=== PATIENT | male | born 1995 | race Caucasian/White ===

== ENCOUNTER 2016-12-30 14:26 | Emergency (ER) | payer OTHER ==
--- NOTE | 2016-12-30 15:56 | DIAGNOSTIC IMAGING REPORT ---
PROCEDURE: XR ABD SERIES 2V ABD/1V CHEST INDICATION: ABDOMINAL PAIN TECHNIQUE: AP supine and upright views of the abdomen with single view of the chest. COMPARISON: None. FINDINGS: CHEST: Lungs are clear. Normal cardiovascular structures. Bony thorax is unremarkable. ABDOMEN: Bowel gas pattern is normal. No soft-tissue masses or unusual calcifications. No evidence of free air. Osseous structures are unremarkable. IMPRESSION: 1. Negative acute abdominal series.
--- NOTE | 2016-12-30 16:31 | ED ORDER SUMMARY ---
..... Patient: ELI NICHOLSON OrderSheet [facility] VisitID: [id number] [place] [address] 21y, M Registration Date/Time: 12/30/2016 ORDER SHEET Weight: 122.4 kg (stated) Allergies: Reglan GENERAL ORDERS: Abd Series 2V Abd/1V Chest Urgent (15:07 12/30/2016 EKoroleva P.A.-C) (Ack 15:08 LNations ER Tech1) (15:44 Celio) CBC w Diff Urgent (15:49 12/30/2016 EKoroleva P.A.-C) (Ack 15:50 LNations ER Tech1) (15:56 LWhalen R.N.) BMP Urgent (15:49 12/30/2016 EKoroleva P.A.-C) (Ack 15:50 LNations ER Tech1) (15:56 LWhalen R.N.) MEDICATION ORDERS: GI Cocktail WHITE PO 30 mL with Lidocaine Viscous Mouth/Throat 15 mL, Maalox Plus Oral 15 mL (NOW) (16:09 12/30/2016 EKoroleva P.A.-C) (16:22 LWhalen R.N.) Hydrocodone-APAP PO 5/325 mg (NOW, HIGH ALERT MEDICATION) (16:16 12/30/2016 EKoroleva P.A.-C) (16:22 LWhalen R.N.) IV FLUIDS: IV NS : initial bolus 1000 mL (1000 mL/hr), then 1000 mL/hr for X1 (NOW); Matt (15:48 12/30/2016 EKoroleva P.A.-C) (15:56 LWhalen R.N.) Toradol IV 30 mg (NOW) (15:48 12/30/2016 EKoroleva P.A.-C) (15:57 LWhalen R.N.) Protonix IVP 40mg 40 mg (Mix in NS 10ml over 2min) (15:49 12/30/2016 EKoroleva P.A.-C) (15:57 LWhalen R.N.) ORDER SHEET NOTES: [Electronically signed by Jez Lopez R.N. (16:33 12/30/2016)] [Electronically signed by Patricia Solis P.A.-C (16:46 12/30/2016)] [Electronically locked/signed by Jez Lopez R.N. (16:33 12/30/2016)]
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
--- NOTE | 2016-12-30 16:31 | ED ORDER SUMMARY ---
..... Patient: ELI NICHOLSON OrderSheet [facility] VisitID: [id number] [place] [address] 21y, M Registration Date/Time: 12/30/2016 ORDER SHEET Weight: 122.4 kg (stated) Allergies: Reglan GENERAL ORDERS: Abd Series 2V Abd/1V Chest Urgent (15:07 12/30/2016 EKoroleva P.A.-C) (Ack 15:08 LNations ER Tech1) (15:44 Celio) CBC w Diff Urgent (15:49 12/30/2016 EKoroleva P.A.-C) (Ack 15:50 LNations ER Tech1) (15:56 LWhalen R.N.) BMP Urgent (15:49 12/30/2016 EKoroleva P.A.-C) (Ack 15:50 LNations ER Tech1) (15:56 LWhalen R.N.) MEDICATION ORDERS: GI Cocktail WHITE PO 30 mL with Lidocaine Viscous Mouth/Throat 15 mL, Maalox Plus Oral 15 mL (NOW) (16:09 12/30/2016 EKoroleva P.A.-C) (16:22 LWhalen R.N.) Hydrocodone-APAP PO 5/325 mg (NOW, HIGH ALERT MEDICATION) (16:16 12/30/2016 EKoroleva P.A.-C) (16:22 LWhalen R.N.) IV FLUIDS: IV NS : initial bolus 1000 mL (1000 mL/hr), then 1000 mL/hr for X1 (NOW); Matt (15:48 12/30/2016 EKoroleva P.A.-C) (15:56 LWhalen R.N.) Toradol IV 30 mg (NOW) (15:48 12/30/2016 EKoroleva P.A.-C) (15:57 LWhalen R.N.) Protonix IVP 40mg 40 mg (Mix in NS 10ml over 2min) (15:49 12/30/2016 EKoroleva P.A.-C) (15:57 LWhalen R.N.) ORDER SHEET NOTES: [Electronically signed by Jez Lopez R.N. (16:33 12/30/2016)] [Electronically signed by Patricia Solis P.A.-C (16:46 12/30/2016)] [Electronically locked/signed by Jez Lopez R.N. (16:33 12/30/2016)]
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
--- NOTE | 2016-12-30 16:47 | ED MED RECONCILIATION SUMMARY ---
Patient: ELI NICHOLSON Medication Reconciliation Report [facility] VisitID: [id number] [address] [place] [address] 21y, M Registration Date/Time: 12/30/2016 Weight: 122.4 kg Height/Length: 72 in. BMI: 36.6 ALLERGIES: Reglan The patient's Home Medications are listed below: THE FOLLOWING MEDICATIONS NEED TO BE RECONCILED: Concerta Oral Omeprazole Oral Phenergan (Promethazine) Oral The source(s) of the original Home Medication information: Not obtained. The following Medications were given to the patient in the Emergency Department: IV NS IV Fluids bolus 0, then 1000 mL/hr, administered: 12/30/2016 3:56:00 PM PROTONIX [IVP] IVP 40 mg, administered: 12/30/2016 3:52:00 PM Toradol [IVP] IVP 30 mg, administered: 12/30/2016 3:57:00 PM Hydrocodone-APAP [PO] PO 1 tab, administered: 12/30/2016 4:22:00 PM GI COCKTAIL WHITE [PO] PO 30 mL, administered: 12/30/2016 4:22:00 PM The following Medications were prescribed to the patient: Ultram 50 mg: take 1 orally every 6 hours as needed for pain. Dispense ten (10). No refills. Substitution is permissible. -- Patricia Solis P.A.-C
--- NOTE | 2016-12-30 16:47 | ED MED RECONCILIATION SUMMARY ---
Patient: ELI NICHOLSON Medication Reconciliation Report [facility] VisitID: [id number] [address] [place] [address] 21y, M Registration Date/Time: 12/30/2016 Weight: 122.4 kg Height/Length: 72 in. BMI: 36.6 ALLERGIES: Reglan The patient's Home Medications are listed below: THE FOLLOWING MEDICATIONS NEED TO BE RECONCILED: Concerta Oral Omeprazole Oral Phenergan (Promethazine) Oral The source(s) of the original Home Medication information: Not obtained. The following Medications were given to the patient in the Emergency Department: IV NS IV Fluids bolus 0, then 1000 mL/hr, administered: 12/30/2016 3:56:00 PM PROTONIX [IVP] IVP 40 mg, administered: 12/30/2016 3:52:00 PM Toradol [IVP] IVP 30 mg, administered: 12/30/2016 3:57:00 PM Hydrocodone-APAP [PO] PO 1 tab, administered: 12/30/2016 4:22:00 PM GI COCKTAIL WHITE [PO] PO 30 mL, administered: 12/30/2016 4:22:00 PM The following Medications were prescribed to the patient: Ultram 50 mg: take 1 orally every 6 hours as needed for pain. Dispense ten (10). No refills. Substitution is permissible. -- Patricia Solis P.A.-C
--- NOTE | 2016-12-30 16:47 | ED MAR SUMMARY ---
..... Medication Administration Record [facility] [address] [place] [address] Patient: ELI NICHOLSON Visit ID: [id number] 21y, M Weight: 122.4 kg Height/Length: 72 in BMI: 36.6 ALLERGIES: Reglan Given 15:52 12/30/2016 Jez Lopez R.N. Medication Administered: PROTONIX [IVP] (PANTOPRAZOLE SODIUM), Dose: 40 mg IVP over 4 minute(s), Site: #1 right hand. Medication Ordered: Protonix IVP 40mg 40 mg (Mix in NS 10ml over 2min). Start 15:56 12/30/2016 Jez Lopez R.N., Stop 16:31 12/30/2016 Jez Lopez R.N. Medication Administered: IV NS (SALINE), Dose: IV Fluids over 1 hour(s), Rate: 1000 mL/hr, Dispensed: 1000 mL bag, Site: #1 right hand. Medication Ordered: IV NS : initial bolus 1000 mL (1000 mL/hr), then 1000 mL/hr for X1 (NOW); Matt. Given 15:57 12/30/2016 Jez Lopez R.N. Medication Administered: TORADOL [IVP], Dose: 30 mg IVP over 2 minute(s), Site: #1 right hand. Medication Ordered: Toradol IV 30 mg (NOW). Given 16:22 12/30/2016 Jez Lopez R.N. Medication Administered: GI COCKTAIL WHITE [PO] (SIMETHICONE), Dose: 30 mL Oral Suspension PO. Medication Ordered: GI Cocktail WHITE PO 30 mL with Lidocaine Viscous Mouth/Throat 15 mL, Maalox Plus Oral 15 mL (NOW). Given 16:22 12/30/2016 Jez Lopez R.N. Medication Administered: HYDROCODONE-APAP [PO] (HYDROCODONE-ACETAMINOPHEN), Dose: 1 tab 5/325 mg Tablets PO. Medication Ordered: Hydrocodone-APAP PO 5/325 mg (NOW, HIGH ALERT MEDICATION).
--- NOTE | 2016-12-30 16:47 | ED DISCHARGE INSTRUCTIONS ---
Patient: ELI NICHOLSON General Instructions [facility] VisitID: [id number] [place] [address] 21y, M Registration Date/Time: 12/30/2016 Chronic abdominal pain of unknown cause. INSTRUCTIONS Drink plenty of fluids. Prescription Medications: Ultram 50 mg: take 1 orally every 6 hours as needed for pain. Dispense ten (10). No refills. Substitution is permissible. Follow-up: Follow up with a specialist. ADDITIONAL INFORMATION Epigastric Pain (Uncertain Cause) Epigastric pain can be a sign of disease in the upper abdomen. Common causes include: Acid reflux (stomach acid flowing up into the esophagus) Gastritis (irritation of the stomach lining) Peptic Ulcer Disease Inflammation of the pancreas Gallstone Infection in the gallbladder Pain may be dull or burning. It may spread upward to the chest or to the back. There may be other symptoms such as belching, bloating, cramps or hunger pains. There may be weight loss or poor appetite, nausea or vomiting. Since the diagnosis of your pain is not certain yet, further tests will be needed. Sometimes the doctor will treat you for the most likely condition to see if there is improvement before doing further tests. Home Care: Unless told otherwise, you may try antacids (Mylanta or Maalox) help neutralize stomach acid. This may relieve your pain. Take 1-2 tablespoons or tablets one hour after meals and at bedtime. The liquid form coats the stomach better than the chewable tablets and is preferred. If Tagamet (cimetidine), Zantac (ranitidine), or Carafate (sucralfate) has also been prescribed, allow one hour between taking this medicine and taking the antacids. Avoid foods that irritate the stomach. Follow a light diet until you are feeling better. Avoid alcohol, caffeine, and tobacco. Talk to your doctor before taking any [id number] medicine that contains aspirin or an anti-inflammatory drug such as ibuprofen, Advil, Motrin, Naprosyn, or Aleve. Follow Up with your doctor or as advised if you do not improve over the next 48 hours. Get Prompt Medical Attention if any of the following occur: Stomach pain worsens or moves to the right lower part of the abdomen Chest pain appears, or if it worsens or spreads to the chest, back, neck, shoulder, or arm Frequent vomiting (cant keep down liquids) Blood in the stool or vomit (red or black color) Feeling weak or dizzy, fainting, or having trouble breathing Fever of 100.4F (38C) or higher, or as directed by your healthcare provider Abdominal swelling Symptoms With Uncertain Cause [Adult] Based on the exam and any tests that were performed today, the exact cause of your symptoms is not certain. While your condition does not seem serious, the signs of a serious problem may take more time to appear. Therefore, it is important for you to watch for any new symptoms or worsening of your condition.Follow up with your doctor or this facility, as directed.A repeat physical exam or additional testing at a later time may uncover a cause for your symptoms that is not evident today. Home Care: Resume your usual activities and diet when this feels comfortable to do so. Follow Up with your doctor, or as advised by our staff.Contact your doctor sooner if your symptoms do not begin to improve in the next few days. [NOTE: If you had an x-ray, CT scan, ultrasound, or ECG (electrocardiogram), it will be reviewed by a specialist. You will be notified of any new findings that may affect your care.] Get Prompt Medical Attention if any of the following occur: Current symptoms get worse New symptoms appear [place] Diet A bland diet is used for patients with an upset stomach. It consists of foods that are mild and easy to digest. It is better to eat small frequent meals rather than three large meals a day. BEVERAGES OK: Fruit juices, non-caffeinated teas and coffee, non-carbonated heller AVOID: Carbonated beverage, caffeinated tea and coffee, all alcoholic beverages BREAD OK: Refined white, wheat or rye bread, annika or soda crackers, Macie toast, plain rolls, bagels AVOID: Whole-grain bread CEREAL OK: Refined cereals: cooked or ready to eat AVOID: Whole grain cereals and granola, or those containing bran, seeds or nuts DESSERTS OK: Peanut butter and all others except those to "avoid" AVOID: Chocolate, cocoa, coconut, popcorn, nuts, seeds, jam, marmalade FRUITS OK: Canned, cooked, frozen or fresh fruits without seeds or tough skin AVOID: Olives, skin and seeds of fruit MEATS OK: All fresh or preserved meat, fish and fowl AVOID: Any that are prepared with those spices to "avoid" CHEESE & EGGS OK: Eggs, cottage cheese, cream cheese, other cheeses AVOID: All cheeses made with those spices to "avoid" POTATOES & PASTA OK: Potato, rice, macaroni, noodles, spaghetti AVOID: None SOUPS OK: All soups without heavy seasoning AVOID: Soups made with those spices to "avoid" VEGETABLES OK: Canned, cooked, fresh or frozen mildly flavored vegetables without seeds, skins or coarse fiber AVOID: Vegetables prepared with those spices to "avoid"; skin and seeds of vegetables and those with coarse fiber SPICES OK: Salt, lemon and [place] juice, vinegar, all extracts, walter, cinnamon, thyme, mace, allspice, paprika AVOID: [place] powder, cloves, pepper, seed spices, garlic, gravy pickles, highly seasoned salad dressings Clear Liquid Diet Clear liquids are any liquid that you can see through as well as those that are very easy to digest. This is used while the body is recovering from irritation or infection of the stomach or intestinal tract. It may also be used before special procedures or surgery. This diet is to be used no more than three days. You may include the following items. Adults Adults should drink a total of 23 quarts of liquid per day. It may be easier to drink small frequent servings rather than a few large ones. Liquids can include: Fruit juices.Strained orange juice or lemonade (no pulp), apple, grape and cranberry juice, clear fruit drinks, sports drinks Beverages.Sport drinks, sodas, mineral water (plain or flavored), tea, black coffee, liquid gelatin (add twice the recommended amount of water) Soups.Clear broth, consomm, bouillon Desserts.Plain gelatin, popsicles, fruit juice bars Children Over 2 years old The following liquids are acceptable for children over age 2: Fruit juices.Strained orange juice or lemonade (no pulp), apple, grape and cranberry juice, clear fruit drinks Beverages. Sports drinks, sodas, mineral water (plain or flavored), tea, liquid gelatin (add twice the recommended amount of water) Soups. Clear broth, consomm, bouillon Desserts. Plain gelatin, popsicles, fruit juice bars Children under 2 years old Oral rehydration fluids such are available at drug stores and most grocery stores without a prescription. You have been given the following additional information: Epigastric Pain (Uncertain Cause) Symptoms With Uncertain Cause Diet, [place] (Adult) Diet, Clear Liquid (Electronically signed by Patricia Solis P.A.-C 12/30/2016 16:46)
--- NOTE | 2016-12-30 16:47 | ED MAR SUMMARY ---
..... Medication Administration Record [facility] [address] [place] [address] Patient: ELI NICHOLSON Visit ID: [id number] 21y, M Weight: 122.4 kg Height/Length: 72 in BMI: 36.6 ALLERGIES: Reglan Given 15:52 12/30/2016 Jez Lopez R.N. Medication Administered: PROTONIX [IVP] (PANTOPRAZOLE SODIUM), Dose: 40 mg IVP over 4 minute(s), Site: #1 right hand. Medication Ordered: Protonix IVP 40mg 40 mg (Mix in NS 10ml over 2min). Start 15:56 12/30/2016 Jez Lopez R.N., Stop 16:31 12/30/2016 Jez Lopez R.N. Medication Administered: IV NS (SALINE), Dose: IV Fluids over 1 hour(s), Rate: 1000 mL/hr, Dispensed: 1000 mL bag, Site: #1 right hand. Medication Ordered: IV NS : initial bolus 1000 mL (1000 mL/hr), then 1000 mL/hr for X1 (NOW); Matt. Given 15:57 12/30/2016 Jez Lopez R.N. Medication Administered: TORADOL [IVP], Dose: 30 mg IVP over 2 minute(s), Site: #1 right hand. Medication Ordered: Toradol IV 30 mg (NOW). Given 16:22 12/30/2016 Jez Lopez R.N. Medication Administered: GI COCKTAIL WHITE [PO] (SIMETHICONE), Dose: 30 mL Oral Suspension PO. Medication Ordered: GI Cocktail WHITE PO 30 mL with Lidocaine Viscous Mouth/Throat 15 mL, Maalox Plus Oral 15 mL (NOW). Given 16:22 12/30/2016 Jez Lopez R.N. Medication Administered: HYDROCODONE-APAP [PO] (HYDROCODONE-ACETAMINOPHEN), Dose: 1 tab 5/325 mg Tablets PO. Medication Ordered: Hydrocodone-APAP PO 5/325 mg (NOW, HIGH ALERT MEDICATION).
== END 2016-12-30 18:10 | disposition home or self-care (01) ==
LOC: ED SRH 14:26
DX: R10.13 Epigastric pain (principal); F17.210 Nicotine dependence, cigarettes, uncomplicated
CPT/HCPCS: 90047; 90074; 95059